=== PATIENT | female | born 1965 | race Caucasian/White ===

== ENCOUNTER → 2019-02-23 | Day surgery (SDC) | payer BC ==
[~2019-02-23] MED LIST: Propofol 200 MG/20 ML SDV IV ONE
[2019-02-23] MEDS: Lactated Ringers 1,000 ML IV SCH (06:53)
[2019-02-23 08:23] VITALS: BP 121/67; PULSE 66
--- NOTE | 2019-02-23 11:56 | OR ---
DATE OF OPERATION: 02/23/2019 PREOPERATIVE DIAGNOSIS: FAMILY HISTORY OF COLON CARCINOMA. POSTOPERATIVE DIAGNOSIS: FAMILY HISTORY OF COLON CARCINOMA. SURGEON: Jean Carlos See MD PROCEDURE: FULL-LENGTH COLONOSCOPY WITH FORCEPS BIOPSY X3. ANESTHESIA: MAC. COMPLICATIONS: None. SPECIMEN: Sigmoid biopsies x3. FINDINGS: 1. Full-length colonoscopy. 2. No polyps, masses, or signs of malignancy. 3. Left-sided colitis, nonspecific, and very mild, mid to distal sigmoid colon. RECOMMENDATIONS: Followup colonoscopy every 5 years. Path followup with her primary provider, Teena Saha. INDICATIONS: The patient is seen for colonoscopy due to family history of colon cancer. It has been 5 years since her last scope. DESCRIPTION OF PROCEDURE: The patient was prepped and draped, placed in the left lateral decubitus position. A lubricated Olympus colonoscope was inserted and easily advanced to the cecum. Direct visualization of the ileocecal valve and appendiceal orifice was accomplished. The bowel prep was excellent. Upon withdrawal of the scope, right transverse and descending colons were completely benign. In the sigmoid colon, in its mid to distal portion and in the rectosigmoid junction, the patient had very mild, but active colitis present. No ulcerations or bleeding. 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 Throughout the length of the colon, there were no polyps, mass, ulceration, or otherwise. No diverticula. The rectal vault was benign. Retroflexion of the scope in the rectum showed no anal lesions. Air was suctioned, scope removed without complication. GAYATHRI/BRITTANY /[id number]
== END ==
LOC: CC.SDS 06:31
PROVIDERS: ATTEND Family Medicine
DX: Z12.11 Encounter for screening for malignant neoplasm of colon (principal); K52.9 Noninfective gastroenteritis and colitis, unspecified; K62.89 Other specified diseases of anus and rectum; I48.0 Paroxysmal atrial fibrillation; M19.90 Unspecified osteoarthritis, unspecified site; J45.909 Unspecified asthma, uncomplicated; K21.9 Gastro-esophageal reflux disease without esophagitis; E78.5 Hyperlipidemia, unspecified; G47.00 Insomnia, unspecified; E89.0 Postprocedural hypothyroidism; M06.9 Rheumatoid arthritis, unspecified; E55.9 Vitamin D deficiency, unspecified; G43.909 Migraine, unspecified, not intractable, without status migrainosus; Z80.0 Family history of malignant neoplasm of digestive organs; Z91.040 Latex allergy status; Z88.1 Allergy status to other antibiotic agents; Z79.51 Long term (current) use of inhaled steroids; Z79.890 Hormone replacement therapy; Z79.899 Other long term (current) drug therapy
CPT/HCPCS: 45380; J2704; J7120

== ENCOUNTER 2019-08-09 21:03 | Emergency (ER) | payer BC ==
[2019-08-09] MEDS ORDERED: Ketorolac 30 MG/ML SDV IVPUSH ONE ×2 (21:10→23:21)
--- NOTE | 2019-08-09 21:42 | EDM.PDOC ---
ED HPI GENERAL MEDICAL PROBLEM - General Chief Complaint: Abdominal Pain Stated Complaint: abdominal pain Time Seen by Provider: 08/09/19 21:26 Source of Information: Reports: Patient History Limitations: Reports: No Limitations - History of Present Illness INITIAL COMMENTS - FREE TEXT/NARRATIVE: Shirley is a 54 yo female who presents to the ED with complaints of abdominal pain. States she started to feel bloated and crampy around 11 this morning. Admits to history of constipation with a bowel movement roughly every 3 days or so. Admits to eating a small meal at lunch and hasn't had anything since. Admits around 1 she was able to have a normal bowel movement but didn't seem to ease off the discomfort. States she does feel nauseated but no vomiting with prior history of lap netta. States she has had a cholecystectomy, hernia repair and total hysterectomy. Denies any urinary complaints besides chronic history of incontinence with prior bladder lift. Onset: Today Duration: Getting Worse Location: Reports: Abdomen Quality: Reports: Pressure, Sharp, Stabbing Improves with: Reports: None Worsens with: Reports: None Associated Symptoms: Reports: Loss of Appetite, Nausea/Vomiting. Denies: Fever/ Chills Abdominal Pain Score (Numeric/FACES): 8 - Related Data Allergies Allergy/AdvReac Type Severity Reaction Status Date / Time ciprofloxacin [From Cipro] Allergy Rash Verified 08/09/19 21:07 ciprofloxacin HCl Allergy Rash Verified 08/09/19 21:07 [From Cipro] latex Allergy Cannot Verified 08/09/19 21:07 Remember Home Meds: Home Meds Albuterol [Ventolin HFA] 2 puff INH TID PRN 11/21/13 [History] Cholecalciferol (Vitamin D3) [Vitamin D] 5,000 units PO DAILY 11/21/13 [History] Cyclobenzaprine [Flexeril] 10 mg PO BEDTIME PRN 11/21/13 [History] Folic Acid 1 mg PO DAILY 11/21/13 [History] Hydroxychloroquine [Plaquenil] 200 mg PO BID 11/21/13 [History] Magnesium 500 mg PO DAILY 11/21/13 [History] Methotrexate Sodium [Methotrexate] 26 mg PO MO 11/21/13 [History] estradioL [Estradiol] 2 mg PO DAILY 11/21/13 [History] Ascorbic Acid [Vitamin C] 100 mg PO DAILY 02/22/19 [History] Aspirin [Ecotrin EC] 325 mg PO DAILY 02/22/19 [History] Cholecalciferol (Vitamin D3) [Vitamin D3] 1,000 unit PO DAILY 02/22/19 [History] Fluticasone Propionate [Flonase] 2 spray NS DAILY 02/22/19 [History] Fluticasone/Vilanterol [Breo Ellipta 200-25 MCG Inhalation Kit] 1 puff IH DAILY 02/22/19 [History] Metoprolol Succinate 25 mg PO DAILY PRN 02/22/19 [History] Montelukast Sodium 10 mg PO DAILY 02/22/19 [History] Zolpidem Tartrate 5 - 10 mg PO BEDTIME PRN 02/22/19 [History] Past Medical History HEENT History: Reports: None Cardiovascular History: Reports: Afib Respiratory History: Reports: Asthma Gastrointestinal History: Reports: Chronic Constipation, Hiatal Hernia Genitourinary History: Reports: Urinary Incontinence [employer]GRAM [employer]GER [employer]ING History: Reports: Musculoskeletal History: Reports: RA Neurological History: Reports: None Psychiatric History: Reports: None Endocrine/Metabolic History: Reports: Hypothyroidism Hematologic History: Reports: Folic Acid Immunologic History: Reports: None Oncologic (Cancer) History: Reports: None Dermatologic History: Reports: None - Past Surgical History HEENT Surgical History: Reports: Tonsillectomy Cardiovascular Surgical History: Reports: None Respiratory Surgical History: Reports: None GI Surgical History: Reports: Cholecystectomy, Hernia Repair/Other, Netta Fundoplication Female Surgical History: Reports: Breast Biopsy, Hysterectomy Endocrine Surgical History: Reports: Thyroidectomy Neurological Surgical History: Reports: None Musculoskeletal Surgical History: Reports: None Social & Family History - Family History Family Medical History: Noncontributory - Tobacco Use Smoking Status *Q: Never Smoker - Alcohol Use Alcohol Use History: Yes Alcohol Use Frequency: Socially - Recreational Drug Use Recreational Drug Use: No - Living Situation & Occupation Living situation: Reports: , with Spouse ED ROS GENERAL - Review of Systems Review Of Systems: Comprehensive ROS is negative, except as noted in HPI. Constitutional: Reports: Decreased Appetite. Denies: Fever, Chills HEENT: Reports: No Symptoms Respiratory: Reports: No Symptoms Cardiovascular: Reports: No Symptoms GI/Abdominal: Reports: Abdominal Pain, Nausea. Denies: Bloody Stool, Flatus, Hematochezia, Vomiting : Reports: Incontinence. Denies: Dysuria, Frequency, Hematuria, Urgency Musculoskeletal: Reports: Joint Pain (chronic from RA) Skin: Reports: No Symptoms Neurological: Reports: No Symptoms Psychiatric: Reports: No Symptoms ED EXAM, GI/ABD - Physical Exam Exam: See Below Exam Limited By: No Limitations General Appearance: Alert, WD/WN, No Apparent Distress Ears: Normal External Exam, Hearing Grossly Normal Nose: Normal Inspection, No Blood Throat/Mouth: Normal Inspection, Normal Lips, Normal Teeth, Normal Oropharynx, Normal Voice, No Airway Compromise Head: Atraumatic, Normocephalic Neck: Normal Inspection, Supple. No: Lymphadenopathy (L), Lymphadenopathy (R) Respiratory/Chest: No Respiratory Distress, Lungs Clear, Normal Breath Sounds, No Accessory Muscle Use Cardiovascular: Normal Peripheral Pulses, Regular Rate, Rhythm, No Edema, No Murmur GI/Abdominal Exam: Normal Bowel Sounds, Soft, No Organomegaly, No Distention, Pelvis Stable, Tender (right and left lower quadrants) Extremities: Normal Inspection, No Pedal Edema Neurological: Alert, Oriented, Normal Cognition, No Motor/Sensory Deficits Psychiatric: Normal Affect, Normal Mood Skin Exam: Warm, Dry, Intact, Normal Color, No Rash Course - Vital Signs Last Recorded V/S: Last Vital Signs Temp 97.6 F 08/09/19 22:11 Pulse 70 08/09/19 22:11 Resp 16 08/09/19 22:11 BP 130/71 08/09/19 22:11 Pulse Ox 99 08/09/19 22:11 - Orders/Labs/Meds Orders: Active Orders 24 hr Category Date Time Status Abdomen Pelvis w Cont [CT] Routine Exams 08/09/19 22:08 Ordered Sodium Chloride 0.9% @ 150 MLS/HR (1000ml) Med 08/09/19 21:45 Ordered Sodium Chloride 0.9% [Normal Saline] 1,000 ml IV ASDIRECTED Medication Orders Sodium Chloride (Normal Saline) 1,000 mls @ 150 mls/hr IV ASDIRECTED REYES Last Admin: 08/09/19 21:45 Dose: 150 mls/hr Labs: Laboratory Tests 08/09/19 08/09/19 08/09/19 Range/Units 21:10 21:10 21:10 WBC 15.8 H (5.0-10.0) 10^3/uL RBC 4.29 (4.00-5.50) 10^6/uL Hgb 14.5 (12.0-16.0) g/dL Hct 41.4 (37.0-47.0) % MCV 96.5 H (82.0-94.0) fL MCH 33.8 H (27.0-32.0) pg MCHC 35.0 (33.0-38.0) g/dL RDW Coeff of Yasmani 12.4 (11.0-15.0) % Plt Count 247 (150-400) 10^3/uL Neut % (Auto) 88.6 H (35-85) % Lymph % (Auto) 5.6 L (10-55) % Ponce % (Auto) 5.3 (0-16) % Eos % (Auto) 0.4 (0-5) % Baso % (Auto) 0.1 (0-3) % Neut # (Auto) 13.96 H (1.80-7.00) 10^3/uL Lymph # (Auto) 0.88 L (1.00-4.80) 10^3/uL Ponce # (Auto) 0.83 H (0.00-0.80) 10^3/uL Eos # (Auto) 0.06 (0.00-0.45) 10^3/uL Baso # (Auto) 0.02 10^3/uL Sodium 137 (136-145) mEq/L Potassium 3.9 (3.5-5.0) mEq/L Chloride 102 (98-106) mEq/L Carbon Dioxide 26 (21-32) mmol/L BUN 12 (7-18) mg/dL Creatinine 1.0 (0.6-1.0) mg/dL Est Cr Clr Drug Dosing 59.51 mL/min Estimated GFR (MDRD) 58 L (>=60) mL/min Glucose 113 H D (75-99) mg/dL Lactic Acid (0.4-2.0) mmol/L Calcium 9.0 (8.4-10.1) mg/dL Magnesium 1.7 L (1.8-2.4) mg/dL Total Bilirubin 0.6 (0.0-1.0) mg/dL AST 20 (15-37) U/L ALT 20 (12-78) U/L Alkaline Phosphatase 72 (46-116) U/L C-Reactive Protein 0.6 (0.2-0.8) mg/dL Total Protein 6.8 (6.4-8.2) g/dL Albumin 3.5 (3.4-5.0) g/dL Amylase 40 (25-115) U/L Urine Color Yellow (YELLOW) Urine Appearance Clear (CLEAR) Urine pH 7.0 (4.5-8.0) Ur Specific Alpine >= 1.030 H (1.003-1.020) Urine Protein Trace H (NEGATIVE) mg/dL Urine Glucose (UA) Negative (NEGATIVE) mg/dL Urine Ketones Trace H (NEGATIVE) mg/dL Urine Occult Blood Trace-intact H (NEGATIVE) Urine Nitrite Negative (NEGATIVE) Urine Bilirubin Negative (NEGATIVE) Urine Urobilinogen 0.2 (0.2-1.0) EU/dL Ur Leukocyte Esterase Negative (NEGATIVE) Urine RBC 0-5 (0-5) /HPF Urine WBC Not seen (0-5) /HPF Ur Epithelial Cells Many H (NOT SEEN) /HPF Urine Bacteria Few H (NOT SEEN) /HPF Urine Mucus Few H (NOT SEEN) /HPF 08/09/19 Range/Units 21:10 WBC (5.0-10.0) 10^3/uL RBC (4.00-5.50) 10^6/uL Hgb (12.0-16.0) g/dL Hct (37.0-47.0) % MCV (82.0-94.0) fL MCH (27.0-32.0) pg MCHC (33.0-38.0) g/dL RDW Coeff of Yasmani (11.0-15.0) % Plt Count (150-400) 10^3/uL Neut % (Auto) (35-85) % Lymph % (Auto) (10-55) % Ponce % (Auto) (0-16) % Eos % (Auto) (0-5) % Baso % (Auto) (0-3) % Neut # (Auto) (1.80-7.00) 10^3/uL Lymph # (Auto) (1.00-4.80) 10^3/uL Ponce # (Auto) (0.00-0.80) 10^3/uL Eos # (Auto) (0.00-0.45) 10^3/uL Baso # (Auto) 10^3/uL Sodium (136-145) mEq/L Potassium (3.5-5.0) mEq/L Chloride (98-106) mEq/L Carbon Dioxide (21-32) mmol/L BUN (7-18) mg/dL Creatinine (0.6-1.0) mg/dL Est Cr Clr Drug Dosing mL/min Estimated GFR (MDRD) (>=60) mL/min Glucose (75-99) mg/dL Lactic Acid 0.9 (0.4-2.0) mmol/L Calcium (8.4-10.1) mg/dL Magnesium (1.8-2.4) mg/dL Total Bilirubin (0.0-1.0) mg/dL AST (15-37) U/L ALT (12-78) U/L Alkaline Phosphatase (46-116) U/L C-Reactive Protein (0.2-0.8) mg/dL Total Protein (6.4-8.2) g/dL Albumin (3.4-5.0) g/dL Amylase (25-115) U/L Urine Color (YELLOW) Urine Appearance (CLEAR) Urine pH (4.5-8.0) Ur Specific Alpine (1.003-1.020) Urine Protein (NEGATIVE) mg/dL Urine Glucose (UA) (NEGATIVE) mg/dL Urine Ketones (NEGATIVE) mg/dL Urine Occult Blood (NEGATIVE) Urine Nitrite (NEGATIVE) Urine Bilirubin (NEGATIVE) Urine Urobilinogen (0.2-1.0) EU/dL Ur Leukocyte Esterase (NEGATIVE) Urine RBC (0-5) /HPF Urine WBC (0-5) /HPF Ur Epithelial Cells (NOT SEEN) /HPF Urine Bacteria (NOT SEEN) /HPF Urine Mucus (NOT SEEN) /HPF Meds: Medications Generic Name Dose Route Start Last Admin Trade Name Freq PRN Reason Stop Dose Admin Sodium Chloride 1,000 mls @ 150 mls/hr 08/09/19 21:45 08/09/19 21:45 Normal Saline IV 150 mls/hr ASDIRECTED REYES Administration Discontinued Medications Generic Name Dose Route Start Last Admin Trade Name Freq PRN Reason Stop Dose Admin Magnesium Sulfate/Dextrose 1 100 mls @ 100 mls/hr 08/09/19 21:56 08/09/19 22: 02 gm/ Premix IV 08/09/19 22:55 100 mls/hr ONETIME ONE Administration Iopamidol 100 ml 08/09/19 22:14 08/09/19 22:48 [id number] (76%) IVPUSH 08/09/19 22:15 100 ml ONETIME ONE Administration Ketorolac Tromethamine 15 mg 08/09/19 21:10 08/09/19 21:24 Toradol IVPUSH 08/09/19 21:11 15 mg ONETIME ONE Administration Magnesium Sulfate 1 gm 08/09/19 21:49 08/09/19 22:05 Magnesium Sulfate 50% IV 08/09/19 21:50 Not Given ONETIME ONE - Re-Assessments/Exams Free Text/Narrative Re-Assessment/Exam: 08/09/19 22:09 After 15mg of Toradol, Shirley's pain did improved to a 3 out of 10 compared to 8 out of 10 on arrival. Currently waiting for CT of the abdomen/pelvis to rule out appendicitis. Departure - Departure Time of Disposition: 23:25 Disposition: DC/Tfer to [facility] 02 Clinical Impression: Appendicitis Qualifiers: Appendicitis type: acute appendicitis Acute appendicitis type: with localized peritonitis Appendicitis gangrene presence: without gangrene Appendicitis perforation presence: without perforation Appendicitis abscess presence: without abscess Qualified Code(s): K35.30 - Acute appendicitis with localized peritonitis, without perforation or gangrene - Discharge Information Instructions: Appendicitis, Adult, [id number] Referrals: PCP,None [Primary Care Provider] - Forms: ED Department Discharge Sepsis Event Note - Evaluation Sepsis Screening Result: No Definite Risk - Focused Exam Vital Signs: Vital Signs Temp Pulse Resp BP Pulse Ox 08/09/19 22:11 97.6 F 70 16 130/71 99 08/09/19 21:03 97.3 F 75 16 144/81 H 99 Date Exam was Performed: 08/09/19 Time Exam was Performed: 23:17 - Problem List & Annotations (1) Appendicitis SNOMED Code(s): 82780223 Code(s): K37 - UNSPECIFIED APPENDICITIS Status: Acute Current Visit: Yes Qualifiers: Appendicitis type: acute appendicitis Acute appendicitis type: with localized peritonitis Appendicitis gangrene presence: without gangrene Appendicitis perforation presence: without perforation Appendicitis abscess presence: without abscess Qualified Code(s): K35.30 - Acute appendicitis with localized peritonitis, without perforation or gangrene - My Orders Last 24 Hours: My Active Orders 08/09/19 21:45 Sodium Chloride 0.9% @ 150 MLS/HR (1000ml) Sodium Chloride 0.9% [Normal Saline] 1,000 ml IV ASDIRECTED 08/09/19 22:08 Abdomen Pelvis w Cont [CT] Routine - Assessment/Plan Last 24 Hours: My Active Orders 08/09/19 21:45 Sodium Chloride 0.9% @ 150 MLS/HR (1000ml) Sodium Chloride 0.9% [Normal Saline] 1,000 ml IV ASDIRECTED 08/09/19 22:08 Abdomen Pelvis w Cont [CT] Routine Plan: CT report did confirm acute appendicitis without rupture/perforation/abscess. Consulted with Dr. Rex Lay, ED physician, at [facility] in [place]. Dr. Lay did consult with Dr. Chou, General Surgeon, who did accept transfer tonight. Discussed antibiotics which will be started upon arrival at [facility] via Dr. Lay. Pain has been well controlled in ED. Patient will be discharged at this time with instructions to go directly to [facility] for admission. Patient is to remain NPO. I would like to thank Dr. Lay for his kindness and participation in Shirley's care. Discussed risks and benefits of transfer with Shirley and her Sam. Risks of transfer included worsening of condition/pain, MVA. Benefits of transfer included appropriate surgical intervention and improvement of condition. Risks of non-transfer included worsening of condition, no appropriate surgical intervention. Benefits of non-transfer included staying in familiar environment and close to home. Shirley and her both verbalized understanding and agreed to transfer via private vehicle. Risks and benefits in regards to mode of transportation discussed.
[2019-08-09] MEDS ORDERED: Sodium Chloride 0.9% 1,000 ML IV SCH (21:45)
[2019-08-09] MEDS ORDERED: Magnesium Sulfate (4.06 MEQ/ML) 1 GM/2 ML SDV IV ONE (21:49)
[2019-08-09] MEDS ORDERED: Iopamidol 755 Mg/ML 100 ML Bottle IVPUSH ONE (22:14)
[2019-08-09 23:32] VITALS: BP 127/70; PULSE 72
== END 2019-08-09 23:45 ==
LOC: CC.ED 21:03
DX: K35.30 Acute appendicitis with localized peritonitis, without perforation or gangrene (principal); I48.91 Unspecified atrial fibrillation; J45.909 Unspecified asthma, uncomplicated; M06.9 Rheumatoid arthritis, unspecified; Z88.1 Allergy status to other antibiotic agents; Z91.040 Latex allergy status; Z79.899 Other long term (current) drug therapy; Z79.82 Long term (current) use of aspirin
CPT/HCPCS: 36415; 74177; 80053; 81001; 82150; 83605; 83735; 85025; 86140; 96365; 96375; 96376; 99285; J1885; J3475; J7030; Q9967